=== PATIENT | female | born 1995 | race Hispanic/Latino ===

== ENCOUNTER 2017-10-07 03:00 | Emergency (ER) | payer BC ==
[~2017-10-07] VITALS: Ht 167.6 cm; Wt 63.5 kg
[~2017-10-07 03:00] MED LIST: NAPROXEN250 MG PO
[2017-10-07] MEDS ORDERED: HYDROCODONE/APAP 5MG-325MG TAB PO ONE (03:45)
[2017-10-07] MEDS ORDERED: AZITHROMYCIN 250 MG TAB PO ONE (03:45)
[2017-10-07] MEDS ORDERED: TETANUS/DIPHTHERIA TOX ADULT 0.5 ML SYR IM ONE (03:45)
== END 2017-10-07 04:12 | disposition home or self-care (01) ==
LOC: FSED 03:00
DX: S00.81XA Abrasion of other part of head, initial encounter (principal); S10.81XA Abrasion of other specified part of neck, initial encounter; W55.03XA Scratched by cat, initial encounter; Y92.008 Other place in unspecified non-institutional (private) residence as the place of occurrence of the external cause
CPT/HCPCS: 90471; 90714; 99282